=== PATIENT | male | born 2000 | race Hispanic/Latino ===

== ENCOUNTER 2023-12-17 19:25 | Emergency (ER) | payer OTHER ==
[2023-12-17 19:58] LABS: #Basophils 0.02 10x3/uL (0.0-0.2); #Eosinphils 0.19 10x3/uL (0.0-0.5); #Monocytes 0.59 10x3/uL (0.0-1.1); #Neutrophils 11.12 10x3/uL (1.5-8.4); %Basophils 0.1 % (0.0-2.0); %Eosinophils 1.4 % (0.0-6.0); %Lymphocytes 12.8 % (18.0-47.0); %Monocytes 4.3 % (0.0-10.0); Hematocrit 42.8 % (38.8-50.0); Hemoglobin 14.8 g/dL (13.5-17.5); Mean Corpuscular HGB CONC 34.6 g/dL (32.0-36.0); Mean Corpuscular Hemoglobin 30.3 pg (27.0-33.0); Mean Corpuscular Volume 87.5 fL (81.2-95.1); Mean Platelet Volume 9.6 fL (7.4-10.4); Platelet Count 277 10x3/uL (150-450); RBC Distribution Width 12.3 % (11.5-14.5); Red Blood Cell (RBC) Count 4.89 10x6/uL (4.32-5.72); White Blood Cell (WBC) Count 13.7 10x3/uL (3.5-10.5)
[2023-12-17] MEDS ORDERED: Mag-Al 1200 mg/1200 mg/30 ML UDCUP ONE (20:02)
[2023-12-17 20:09] LABS: ALT (SGPT) 13 U/L (8-55); AST (SGOT) 23 U/L (5-34); Albumin 4.5 g/dL (3.5-5.0); Alkaline Phosphatase 46 U/L (40-110); Anion Gap 13 mmol/L (10-20); BUN (Urea Nitrogen) 13 mg/dL (8.9-20.6); Bilirubin, Total 0.3 mg/dL (0.2-1.2); Calc. Creatinine Clearance 0 mL/min (70-130); Calcium 9.9 mg/dL (7.8-10.44); Carbon Dioxide 26 mmol/L (22-29); Chloride 102 mmol/L (98-107); Estimated GFR 103; Globulin 3.2 g/dL (2.4-3.5); Glucose 106 mg/dL (70-105); Potassium 3.9 mmol/L (3.5-5.1); Protein, Total 7.7 g/dL (6.0-8.3); Sodium 137 mmol/L (136-145)
[2023-12-17 20:13] LABS: Troponin I Less than 0.010 ng/mL (< 0.028)
== END 2023-12-17 21:23 ==
LOC: CSHERS 19:25 → EEVIPCON 19:25 → CSHERS 21:23
DX: R07.2 Precordial pain (principal); Z87.891 Personal history of nicotine dependence
CPT/HCPCS: 36415; 71045; 80053; 83690; 84484; 85025; 93005

== ENCOUNTER 2024-01-06 14:59 | Emergency (ER) | payer OTHER ==
[2024-01-06] MEDS ORDERED: PROPOFOL 20 ML ONE (15:05)
[2024-01-06] MEDS ORDERED: Ondansetron PF 4 MG/2 ML Vial ONE ×2 (15:05→15:06)
[2024-01-06] MEDS ORDERED: Ketorolac Tromethamine 30 MG (1 mL) VIAL ONE (15:05)
[2024-01-06] MEDS ORDERED: Morphine 4 MG/ML VIAL ONE (15:05)
== END 2024-01-06 16:15 ==
LOC: CSHERS 14:59 → EEVIPCON 14:59 → CSHERS 16:15
DX: S43.004A Unspecified dislocation of right shoulder joint, initial encounter (principal); F31.9 Bipolar disorder, unspecified; F41.9 Anxiety disorder, unspecified; Z55.6 Problems related to health literacy; Z75.3 Unavailability and inaccessibility of health-care facilities; Z87.891 Personal history of nicotine dependence; X58.XXXA Exposure to other specified factors, initial encounter
CPT/HCPCS: 23650; 96374; 96375; J1885; J2272; J2405; J2704

== ENCOUNTER 2024-01-23 12:47 | Emergency (ER) | payer OTHER ==
[2024-01-23] MEDS ORDERED: Ketorolac Tromethamine 30 MG (1 mL) VIAL ONE (13:09)
[2024-01-23 13:49] LABS: #Basophils 0.02 10x3/uL (0.0-0.2); #Eosinophils 0.44 10x3/uL (0.0-0.5); #Neutrophils 3.46 10x3/uL (1.5-8.4); %Basophils 0.3 % (0.0-2.0); %Eosinophils 7.3 % (0.0-6.0); %Monocytes 6.6 % (0.0-10.0); %Neutrophils 57.5 % (40.0-75.0); Hematocrit 41.1 % (38.8-50.0); Hemoglobin 13.9 g/dL (13.5-17.5); Mean Corpuscular HGB CONC 33.8 g/dL (32.0-36.0); Mean Corpuscular Hemoglobin 29.7 pg (27.0-33.0); Mean Corpuscular Volume 87.8 fL (81.2-95.1); Platelet Count 235 10x3/uL (150-450); RBC Distribution Width 12.1 % (11.5-14.5); Red Blood Cell (RBC) Count 4.68 10x6/uL (4.32-5.72)
[2024-01-23 13:53] LABS: ALT (SGPT) 15 U/L (8-55); AST (SGOT) 21 U/L (5-34); Albumin 4.1 g/dL (3.5-5.0); Alkaline Phosphatase 38 U/L (40-110); Anion Gap 13 mmol/L (10-20); BUN (Urea Nitrogen) 13 mg/dL (8.9-20.6); Bilirubin, Total 0.3 mg/dL (0.2-1.2); Calc. Creatinine Clearance 0 mL/min (70-130); Calcium 9.3 mg/dL (7.8-10.44); Carbon Dioxide 25 mmol/L (22-29); Chloride 106 mmol/L (98-107); Estimated GFR 124; Glucose 88 mg/dL (70-105); Potassium 4.5 mmol/L (3.5-5.1); Protein, Total 7.1 g/dL (6.0-8.3); Sodium 139 mmol/L (136-145)
[2024-01-23 13:56] LABS: Troponin I Less than 0.010 ng/mL (< 0.028)
== END 2024-01-23 15:05 | disposition home or self-care (01) ==
LOC: CSHERS 12:47 → EEVIPCON 12:47 → CSHERS 15:05
DX: R07.9 Chest pain, unspecified (principal); Z87.891 Personal history of nicotine dependence
CPT/HCPCS: 36415; 71045; 80053; 84484; 85025; 93005; 96374; J1885